=== PATIENT | female | born 1990 | race Two or more races ===

== ENCOUNTER 2019-05-08 00:41 | Emergency (ER) | payer BC ==
[2019-05-08 00:52] VITALS: TEMP 97.6; BMI 21.1
--- NOTE | 2019-05-08 01:49 | PDOC ---
Attending Attestation - Resident Resident Name: Getachew Henley - ED Attending Attestation I have performed the following: I have examined & evaluated the patient, The case was reviewed & discussed with the resident, I agree w/resident's findings & plan - HPI HPI: 05/08/19 05:48 Pt comes with flank pain and dysuria. She has no fever and no chills. - Physicial Exam PE: 05/08/19 05:49 Agree with resident exam 05/08/19 06:32 R flank pain. Right side pain and Right abd pain. Pt has no fever and no chills A+Ox3. Heart and lungs are clear. No rebound, no guarding. No peripeheral edema. - Medical Decision Making 05/08/19 05:49 Pt has a UTI; but no stones visible of CT scan; she has no fever and no chills. Patient Name: SANTHOSH HANNA THIS IS A PRELIMINARY REPORT FROM [facility] DATE OF SERVICE: 2019-05-08 05:05:57 IMAGES: [id number] EXAM: CT abdomen pelvis without contrast HISTORY: Flank pain COMPARISON: None. FINDINGS: Lung bases are clear. The visualized cardiac chambers are normal size and configuration. There is mild right hydroureter without obstructing stone identified. Patient may have recently passed a stone. Normal unenhanced liver, gallbladder, pancreas, spleen , adrenal glands and left kidney. The stomach and abdominal small and large bowel are normal. There is no aortic aneurysm. There is no significant retroperitoneal lymphadenopathy. The pelvic small and large bowel are normal. There is no evidence of appendicitis, though the headaches is not clearly visualized. The uterus and adnexal structures are normal. Urinary bladder is unremarkable. There is minimal pelvic free fluid. No discrete pelvic lymphadenopathy is identified. IMPRESSION: Mild right hydroureter could be due to a recently passed stone. 05/08/19 05:57 Pt will be sent home with abx; she will be given an IV dose of meds in the ER. 05/08/19 06:30 Pt is still feeling some right flank pain; however her abd pain and suprapubic pain is improved. She feels warm to the touch and her HR is 90bpm. She received a dose of ceftriaxone in the ER IVPB, and she will go home with keflex 500BID.
--- NOTE | 2019-05-08 01:56 | PDOC ---
History of Present Illness - General Chief Complaint: Pain, Acute Stated Complaint: ABD PAIN Time Seen by Provider: 05/08/19 01:36 - History of Present Illness Initial Comments: 05/08/19 01:50 29 y/o F no significant medical hx, presents to the ED with right sided abdominal pain she has had since this a.m. Pain has been constant through out the day and was initially bearable. Approx 2 hours ago pain intensified and is radiating to her back , 10/10 in severity. She denies any relieving/ exacerbating factors and has not taken any medications at home. She has had 4 episodes of loose stools since yesterday with no melena. One episode of hematuria. Frequency, urgency and nausea. She has had 2 other visits for abdominal pain in the last 2 weeks after a trip to [place] in where she had a ' stomach virus" and had vomiting, diarrhea and abdominal pain as well. She denies any vaginal bleeding or discharge, LMP was 04/20 Past History - Past Medical History Allergies/Adverse Reactions: Allergies Allergy/AdvReac Type Severity Reaction Status Date / Time No Known Allergies Allergy Verified 05/08/19 02:20 Home Medications: Ambulatory Orders Cephalexin [Keflex] 500 mg PO BID 7 Days #14 capsule 05/08/19 - Suicide/Smoking/Psychosocial Hx Smoking History: Never smoked Have you smoked in the past 12 months: No Information on smoking cessation initiated: No Hx Alcohol Use: No Drug/Substance Use Hx: No *Physical Exam - Vital Signs Last Vital Signs Temp Pulse Resp BP Pulse Ox 97.6 F 89 20 101/81 100 05/08/19 00:50 05/08/19 00:50 05/08/19 00:50 05/08/19 00:50 05/08/19 00:50 - Physical Exam Comments: 05/08/19 02:36 GENERAL: Awake, alert, and fully oriented, in no acute distress HEAD: No signs of trauma, normocephalic, atraumatic EYES: PERRLA, EOMI, sclera anicteric, conjunctiva clear ENT: Auricles normal inspection, hearing grossly normal, nares patent, oropharynx clear without exudates. Moist mucosa NECK: Normal ROM, supple, no lymphadenopathy, JVD, or masses LUNGS: No distress, speaks full sentences, clear to auscultation bilaterally HEART: Regular rate and rhythm, normal S1 and S2, no murmurs, rubs or gallops, peripheral pulses normal and equal bilaterally. ABDOMEN: Soft, epigastric tenderness and guarding. right CVA tenderness. no rebound EXTREMITIES : Normal inspection, Normal range of motion, no edema. No clubbing or cyanosis NEUROLOGICAL: Cranial nerves II through XII grossly intact. Normal speech, normal gait, no focal sensorimotor deficits SKIN: Warm, Dry, normal turgor, no rashes or lesions noted ED Treatment Course - LABORATORY CBC & Chemistry Diagram: 05/08/19 03:20 05/08/19 03:20 Medical Decision Making - Medical Decision Making 05/08/19 04:03 29 y/o F no significant medical hx, presents to the ED with right sided abdominal pain she has had since this a.m. cbc, cmp, ua, serum preg, ct (spiral) Meds: Normal saline 1000ml, IV tylenol 1g UA: + leukocyte esterase, nitrites,blood cbc: elevated white count. 05/08/19 05:42 ct abdomen and pelvis w/o contrast. FINDINGS: Lung bases are clear. The visualized cardiac chambers are normal size and configuration. There is mild right hydroureter without obstructing stone identified. Patient may have recently passed a stone. Normal unenhanced liver, gallbladder, pancreas, spleen , adrenal glands and left kidney. The stomach and abdominal small and large bowel are normal. There is no aortic aneurysm. There is no significant retroperitoneal lymphadenopathy. The pelvic small and large bowel are normal. There is no evidence of appendicitis, though the headaches is not clearly visualized. The uterus and adnexal structures are normal. Urinary bladder is unremarkable. There is minimal pelvic free fluid. No discrete pelvic lymphadenopathy is identified. IMPRESSION: Mild right hydroureter could be due to a recently passed stone. 05/08/19 06:07 Pt given 1 dose of rocephin (1gm in ED) IV Discharge home with prescription for Keflex 500mg PO bid for 7 days. *DC/Admit/Observation/Transfer Diagnosis at time of Disposition: UTI (urinary tract infection) Qualifiers: Urinary tract infection type: site unspecified - Discharge Dispostion Disposition: HOME Condition at time of disposition: Stable Decision to Admit order: No - Prescriptions Prescriptions: Cephalexin [Keflex] 500 mg PO BID 7 Days #14 capsule - Referrals - Patient Instructions Printed Discharge Instructions: Urinary Tract Infection Additional Instructions: UTI Discharge: HOME CARE INSTRUCTIONS - you were prescribed antibiotics, take them as instructed. Finish the medication even if you feel better! Drink enough water and fluids to keep your urine clear or pale yellow. Avoid caffeine, tea, and carbonated beverages - these can irritate your bladder. Empty your bladder often. Avoid holding urine for long periods of time. Empty your bladder before and after sexual intercourse. After a bowel movement, women should cleanse from front to back. Use each tissue only once. SEEK MEDICAL CARE IF: You have back pain. You develop a fever. Your symptoms do not begin to resolve within 3 days. SEEK IMMEDIATE MEDICAL CARE IF: You have severe back pain or lower abdominal pain. You develop chills. You have nausea or vomiting. You have continued burning or discomfort with urination. - Post Discharge Activity
[2019-05-08] MEDS ORDERED: ACETAMINOPHEN 1000 MG/100 ML VIAL (NON FORMULARY) IVPB ONE (02:14)
[2019-05-08] MEDS ORDERED: SODIUM CHLORIDE 0.9% 500 ML INFUS.BAG IV ONE (02:14)
[2019-05-08] MEDS ORDERED: ACETAMINOPHEN INJECTION 100 ML IVPB ONE (02:50)
[2019-05-08 02:51] LABS: EPI CELLS 3.5 /HPF (0-5/HPF); HYALINE CASTS 6 /lpf (0-8); URINE APPEARANCE TURBID; URINE BACTERIA 4579.6 /hpf (NEGATIVE); URINE BILIRUBIN NEGATIVE (NEGATIVE); URINE COLOR YELLOW; URINE GLUCOSE (UA) NEGATIVE (NEGATIVE); URINE KETONE NEGATIVE (NEGATIVE); URINE LEUK ESTERASE 3+ (NEGATIVE); URINE NITRITE POSITIVE (NEGATIVE); URINE PROTEIN 2+ (NEGATIVE); URINE RBC 6 /hpf (0-4); URINE UROBILINOGEN 0.2 mg/dL (0.2-1.0); URINE WBC 640 /hpf (0-5)
[2019-05-08 03:56] LABS: BASO % 0.2 % (0-2.0); EOS % 0.9 % (0-4.5); HEMATOCRIT 37.9 % (32.4-45.2); HEMOGLOBIN 12.5 GM/dL (10.7-15.3); LYMPH % 11.7 % (8-40); MCH 28.4 pg (25.7-33.7); MCHC 32.9 g/dl (32.0-36.0); MEAN CELL VOLUME 86.4 fl (80-96); MEAN PLT VOLUME 8.7 fl (7.5-11.1); MONO % 5.7 % (3.8-10.2); NEUT % 81.5 % (42.8-82.8); PLATELET COUNT 248 K/MM3 (134-434); RBC 4.39 M/mm3 (3.60-5.2); RDW 13.1 % (11.6-15.6); WHITE BLOOD COUNT 13.6 K/mm3 (4.0-10.0)
[2019-05-08 04:19] LABS: ALBUMIN 3.6 g/dl (3.4-5.0); BILIRUBIN,TOTAL 0.4 mg/dL (0.2-1); BLOOD UREA NITROGEN 16.5 mg/dL (7-18); CREATININE 0.6 mg/dL (0.55-1.3); POTASSIUM 3.9 mmol/L (3.5-5.1); TOT PROT 6.6 g/dl (6.4-8.2)
[2019-05-08] MEDS ORDERED: CEFTRIAXONE 1 GM in DEXTROSE 5%-WATER - 100 ML IVPB ONE (05:47)
[2019-05-08] MEDS ORDERED: CEFTRIAXONE 1 GM/50 ML BAG ONE (05:56)
[2019-05-08 06:42] VITALS: BP 110/85; PULSE 84
== END 2019-05-08 06:26 | disposition home or self-care (01) ==
LOC: JER 00:41
DX: N39.0 Urinary tract infection, site not specified (principal)
CPT/HCPCS: 36415; 74176-TC; 80053; 81003; 83690; 84703; 85025; 87086; 87186; 96365; 99283-25; J0131

== ENCOUNTER 2023-08-25 04:41 | Day surgery (SDC) | payer OTHER ==
[2023-08-13 15:31] VITALS: BMI 24.5
[2023-08-25] MEDS ORDERED: PROMETHAZINE HCL 25 MG/1 ML VIAL IVPB PRN (07:46)
[2023-08-25] MEDS ORDERED: ONDANSETRON 4 MG/2 ML VIAL IVPUSH PRN (07:46)
[2023-08-25] MEDS ORDERED: oxyCODONE HCL 5 MG TABLET PO PRN (07:46)
[2023-08-25] MEDS ORDERED: LACTATED RINGERS SOLUTION 1,000 ML IV SCH (08:00)
[2023-08-25 08:19] LABS: PH,URINE 5.5 (5.0-8.0); URINE APPEARANCE CLEAR; URINE BILIRUBIN NEGATIVE (NEGATIVE); URINE COLOR YELLOW; URINE GLUCOSE (UA) NEGATIVE (NEGATIVE); URINE KETONE NEGATIVE (NEGATIVE); URINE LEUK ESTERASE NEGATIVE (NEGATIVE); URINE NITRITE NEGATIVE (NEGATIVE); URINE PROTEIN NEGATIVE (NEGATIVE); URINE UROBILINOGEN 0.2 mg/dL (0.2-1.0)
== END 2023-08-25 09:00 | disposition home or self-care (01) ==
LOC: JASU-SURG 04:41
PROVIDERS: ATTEND Obstetrics & Gynecology
DX: Z53.8 Procedure and treatment not carried out for other reasons (principal)
CPT/HCPCS: 81003; 81025

== ENCOUNTER 2023-09-09 04:07 | Day surgery (SDC) | payer OTHER ==
[2023-09-08 11:41] VITALS: BMI 24.5
[2023-09-09] MEDS ORDERED: PROPOFOL 20 ML ONE (07:37)
[2023-09-09] MEDS ORDERED: ROCURONIUM BROMIDE 50 MG/5 ML SYRINGE ONE (07:37)
[2023-09-09] MEDS ORDERED: MIDAZOLAM HCL 2 MG/2 ML SINGLE DOSE VIAL ONE (07:37)
[2023-09-09] MEDS ORDERED: LIDOCAINE HCL/PF 2% SDV 5ML VIAL ONE (07:44)
[2023-09-09] MEDS ORDERED: METHYLENE BLUE 50 MG/10 ML AMPUL ONE (07:48)
[2023-09-09] MEDS ORDERED: ceFAZolin SODIUM 1 GM VIAL IVPB ONE (08:15)
[2023-09-09] MEDS ORDERED: SODIUM CHLORIDE 0.9% P/F 10 ML VIAL IJ ONE (08:17)
[2023-09-09] MEDS ORDERED: ceFAZolin SODIUM 1 GM VIAL ONE (08:17)
[2023-09-09] MEDS ORDERED: METOCLOPRAMIDE HCL INJECTION 10 MG/2 ML VIAL ONE (08:26)
[2023-09-09] MEDS ORDERED: ONDANSETRON 4 MG/2 ML VIAL ONE (08:26)
[2023-09-09] MEDS ORDERED: DEXAMETHASONE SOD PHOSPHATE 4 MG/1 ML VIAL ONE (08:26)
[2023-09-09] MEDS ORDERED: METHYLENE BLUE 1% 10 MG/1 ML VIAL NR ONE (08:35)
[2023-09-09] MEDS ORDERED: LIDOCAINE HCL 1%, 10 MG/ML (20ML VIAL) ONE (08:49)
[2023-09-09] MEDS ORDERED: SUGAMMADEX SODIUM 200 MG/2 ML VIAL ONE (08:54)
[2023-09-09] MEDS ORDERED: LIDOCAINE HCL 1%, 10 MG/ML (20ML VIAL) SQ ONE (08:55)
[2023-09-09] MEDS ORDERED: ONDANSETRON 4 MG/2 ML VIAL IVPUSH PRN ×2 (08:59→09:17)
[2023-09-09] MEDS ORDERED: oxyCODONE HCL 5 MG TABLET PO PRN ×2 (08:59→09:17)
[2023-09-09] MEDS ORDERED: IBUPROFEN 600 MG TABLET (FP) PO PRN (08:59)
[2023-09-09] MEDS ORDERED: IBUPROFEN 800 MG/8 ML IJ IVPB PRN (08:59)
[2023-09-09] MEDS ORDERED: ELECTROLYTE-148 SOLN 1,000 ML IV SCH (09:00)
[2023-09-09] MEDS ORDERED: PROMETHAZINE HCL 25 MG/1 ML VIAL IVPB PRN (09:17)
[2023-09-09] MEDS ORDERED: LACTATED RINGERS SOLUTION 1,000 ML IV SCH (09:30)
[2023-09-09 12:25] VITALS: TEMP 97.2
[2023-09-09 13:02] VITALS: BP 125/75; PULSE 85; RESP 20
== END 2023-09-09 12:59 | disposition home or self-care (01) ==
LOC: JASU-SURG 04:07
PROVIDERS: ATTEND Obstetrics & Gynecology
PROC: 3E0P8KZ Introduction of Other Diagnostic Substance into Female Reproductive, Via Natural or Artificial Opening Endoscopic (ICD-10-PCS; 2023-09-09)
PROC: 0UJ84ZZ Inspection of Fallopian Tube, Percutaneous Endoscopic Approach (ICD-10-PCS; 2023-09-09)
PROC: 0DBW4ZX Excision of Peritoneum, Percutaneous Endoscopic Approach, Diagnostic (ICD-10-PCS; principal; 2023-09-09 08:00)
DX: N97.9 Female infertility, unspecified (principal); D25.9 Leiomyoma of uterus, unspecified; N80.329 Endometriosis of the posterior cul-de-sac, unspecified depth; N80.399 Endometriosis of the pelvic peritoneum, other specified sites, unspecified depth
CPT/HCPCS: 88305-TC; 94760; Q9968

== ENCOUNTER 2024-10-13 12:00 | Inpatient (IN) | payer OTHER ==
[2024-10-13 14:13] LABS: RETICULOCYTES 1.64 % (0.5-1.5)
[2024-10-13 14:51] LABS: URIC ACID 5.1 mg/dL (2.6-7.2)
[2024-10-13 15:21] LABS: RETICULOCYTES 1.69 % (0.5-1.5)
[2024-10-13] MEDS ORDERED: ACETAMINOPHEN 325 MG TABLET (FP) PO ONE (17:00)
[2024-10-13] MEDS ORDERED: ACETAMINOPHEN 325 MG TABLET (FP) ONE ×2 (17:01→22:47)
[2024-10-13] MEDS: ACETAMINOPHEN 325 MG TABLET (FP) PO ONE (17:03)
[2024-10-13 18:43] VITALS: BMI 34.0
[2024-10-13] MEDS ORDERED: ONDANSETRON 4 MG/2 ML VIAL ONE (22:32)
[2024-10-13] MEDS: ONDANSETRON 4 MG/2 ML VIAL IVPUSH ONE (22:37)
[2024-10-13] MEDS: ACETAMINOPHEN 325 MG TABLET (FP) PO PRN (22:51)
[2024-10-14 07:45] LABS: BASO % 0.4 % (0-2.0); HEMATOCRIT 35.1 % (32.4-45.2); HEMOGLOBIN 11.5 GM/dL (10.7-15.3); MCH 28.3 pg (25.7-33.7); MCHC 32.6 g/dl (32.0-36.0); MEAN CELL VOLUME 86.8 fl (80-96); MEAN PLT VOLUME 8.3 fl (7.5-11.1); MONO % 6.5 % (3.8-10.2); NEUT % 68.1 % (42.8-82.8); PLATELET COUNT 270 10^3/uL (134-434); RBC 4.04 M/mm3 (3.60-5.2); RDW 14.3 % (11.6-15.6); WHITE BLOOD COUNT 9.9 K/mm3 (4.0-10.0)
[2024-10-14] MEDS ORDERED: ACETAMINOPHEN 325 MG TABLET (FP) ONE ×2 (08:12→22:06)
[2024-10-14 08:19] LABS: POTASSIUM 4.9 mmol/L (3.5-5.1)
[2024-10-14 08:21] LABS: ALBUMIN 2.3 g/dl (3.4-5.0); BLOOD UREA NITROGEN 9.9 mg/dL (7-18); CALCIUM 9.2 mg/dL (8.5-10.1)
[2024-10-14 08:24] LABS: CREATININE 0.5 mg/dL (0.55-1.3)
[2024-10-14 08:26] LABS: BILIRUBIN,TOTAL 0.2 mg/dL (0.2-1); TOT PROT 5.9 g/dl (6.4-8.2)
[2024-10-14] MEDS ORDERED: ACETAMINOPHEN INJECTION 100 ML ONE (14:14)
[2024-10-14] MEDS: LACTATED RINGERS SOLUTION 1,000 ML IV SCH (14:15)
[2024-10-14] MEDS: ACETAMINOPHEN 1000 MG/100 ML BAG IVPB ONE (14:20)
[2024-10-14 20:25] LABS: BASO % 0.3 % (0-2.0); EOS % 2.3 % (0-4.5); HEMOGLOBIN 11.6 GM/dL (10.7-15.3); LYMPH % 24.1 % (8-40); MCH 28.3 pg (25.7-33.7); MCHC 33.1 g/dl (32.0-36.0); MEAN CELL VOLUME 85.3 fl (80-96); MEAN PLT VOLUME 8.1 fl (7.5-11.1); MONO % 7.1 % (3.8-10.2); NEUT % 66.2 % (42.8-82.8); PLATELET COUNT 272 10^3/uL (134-434); RDW 13.9 % (11.6-15.6)
[2024-10-14 20:32] LABS: INR 0.96 (0.83-1.09); PROTHROMBIN TIME (PATIENT) 10.6 SEC (9.7-13.0)
[2024-10-14 20:46] LABS: POTASSIUM 4.9 mmol/L (3.5-5.1)
[2024-10-14 20:48] LABS: CALCIUM 9.4 mg/dL (8.5-10.1)
[2024-10-14 20:49] LABS: ALBUMIN 2.3 g/dl (3.4-5.0); BLOOD UREA NITROGEN 10.6 mg/dL (7-18)
[2024-10-14 20:52] LABS: CREATININE 0.4 mg/dL (0.55-1.3); URIC ACID 4.6 mg/dL (2.6-7.2)
[2024-10-14 20:53] LABS: BILIRUBIN,TOTAL 0.2 mg/dL (0.2-1)
[2024-10-15 13:01] LABS: BASO % 0.2 % (0-2.0); EOS % 2.1 % (0-4.5); HEMATOCRIT 35.1 % (32.4-45.2); HEMOGLOBIN 11.7 GM/dL (10.7-15.3); MCH 28.4 pg (25.7-33.7); MCHC 33.3 g/dl (32.0-36.0); MEAN CELL VOLUME 85.2 fl (80-96); MEAN PLT VOLUME 8.1 fl (7.5-11.1); MONO % 6.6 % (3.8-10.2); NEUT % 72.1 % (42.8-82.8); PLATELET COUNT 267 10^3/uL (134-434); RBC 4.11 M/mm3 (3.60-5.2); RDW 14.3 % (11.6-15.6); WHITE BLOOD COUNT 9.3 K/mm3 (4.0-10.0)
[2024-10-15 13:24] LABS: POTASSIUM 4.9 mmol/L (3.5-5.1)
[2024-10-15 13:26] LABS: ALBUMIN 2.4 g/dl (3.4-5.0); BLOOD UREA NITROGEN 6.8 mg/dL (7-18)
[2024-10-15 13:30] LABS: BILIRUBIN,TOTAL 0.2 mg/dL (0.2-1); CREATININE 0.4 mg/dL (0.55-1.3)
[2024-10-15] MEDS ORDERED: METOCLOPRAMIDE HCL INJECTION 10 MG/2 ML VIAL ONE (15:45)
[2024-10-15] MEDS: METOCLOPRAMIDE HCL INJECTION 10 MG/2 ML VIAL IVPB ONE (15:50)
[2024-10-15] MEDS ORDERED: ACETAMINOPHEN 1000 MG/100 ML BAG IVPB PRN (16:16)
[2024-10-15 22:18] VITALS: RESP 18
[2024-10-16 08:18] LABS: BASO % 0.3 % (0-2.0); HEMATOCRIT 32.9 % (32.4-45.2); HEMOGLOBIN 11.2 GM/dL (10.7-15.3); LYMPH % 20.4 % (8-40); MCH 29.2 pg (25.7-33.7); MCHC 34.2 g/dl (32.0-36.0); MEAN CELL VOLUME 85.4 fl (80-96); MEAN PLT VOLUME 8.4 fl (7.5-11.1); MONO % 6.9 % (3.8-10.2); NEUT % 69.4 % (42.8-82.8); PLATELET COUNT 242 10^3/uL (134-434); RBC 3.85 M/mm3 (3.60-5.2); RDW 14.4 % (11.6-15.6); WHITE BLOOD COUNT 11.1 K/mm3 (4.0-10.0)
[2024-10-16 08:22] LABS: POTASSIUM 4.6 mmol/L (3.5-5.1)
[2024-10-16 08:24] LABS: ALBUMIN 2.2 g/dl (3.4-5.0); BLOOD UREA NITROGEN 9.8 mg/dL (7-18); CALCIUM 8.6 mg/dL (8.5-10.1)
[2024-10-16 08:26] LABS: URIC ACID 5.1 mg/dL (2.6-7.2)
[2024-10-16 08:27] LABS: CREATININE 0.4 mg/dL (0.55-1.3)
[2024-10-16 08:28] LABS: BILIRUBIN,TOTAL 0.2 mg/dL (0.2-1); TOT PROT 5.5 g/dl (6.4-8.2)
[2024-10-16 09:39] VITALS: TEMP 98.2
[2024-10-16 14:30] VITALS: BP 132/82; PULSE 98
== END 2024-10-16 14:40 | disposition home or self-care (01) | DRG 566 ==
LOC: JDEL 12:00 → JLDR 17:55 → J3W 10-15 16:00
PROVIDERS: ADMIT Obstetrics & Gynecology; ATTEND Obstetrics & Gynecology
DX: O26.893 Other specified pregnancy related conditions, third trimester (principal); G43.909 Migraine, unspecified, not intractable, without status migrainosus; O09.513 Supervision of elderly primigravida, third trimester; Z3A.35 35 weeks gestation of pregnancy
CPT/HCPCS: 36415; 70544-TC; 70551-TC; 80053; 82570; 82977; 83010; 84156; 84450; 84460; 84550; 85025; 85032; 85045; 85610; 85730; 86850; 86870; 86880; 86900; 86901; 86902; J0131

== ENCOUNTER 2024-11-02 10:46 | Inpatient (IN) | payer OTHER ==
[2024-11-02 13:17] LABS: ABSOLUTE IMMATURE GRANULOCYTES 0.16 x10^3/uL (0.0-0.031); BASOPHILS # 0.06 x10^3/uL (0.01-0.08); EOSINOPHIL % 1.3 % (0.7-5.8); EOSINOPHILS # 0.17 x10^3/uL (0.04-0.36); HEMATOCRIT 36.9 % (34.1-44.9); MCHC 32.5 g/dl (32.2-35.5); MEAN CELL VOLUME 86.6 fl (79.4-94.8); MEAN PLT VOLUME 10.1 fl (9.4-12.3); MONOCYTE # 0.69 x10^3/uL (0.24-0.86); MONOCYTE % 5.2 % (4.7-12.5); PLATELET COUNT # 257 x10^3/uL (182-369); RDW 15.1 % (12.1-16.8); Reticulocyte % 2.65 % (0.5-1.7)
[2024-11-02 13:46] LABS: URIC ACID 4.6 mg/dL (2.6-7.2)
[2024-11-02] MEDS: LACTATED RINGERS SOLUTION 1,000 ML/1,000 ML INFUS.BAG IV SCH (15:45)
[2024-11-02] MEDS: DINOPROSTONE 10 MG VAGINAL SUPPOSITORY VG ONE (15:50)
[2024-11-02 16:55] LABS: INR 0.96 (0.83-1.09); PROTHROMBIN TIME (PATIENT) 10.5 SEC (9.7-13.0)
[2024-11-02 17:04] LABS: POTASSIUM 4.2 mmol/L (3.5-5.1)
[2024-11-02 17:05] VITALS: BMI 35.5
[2024-11-02 17:05] LABS: CALCIUM 9.1 mg/dL (8.5-10.1)
[2024-11-02 17:06] LABS: BLOOD UREA NITROGEN 11.4 mg/dL (7-18)
[2024-11-02 17:09] LABS: CREATININE 0.4 mg/dL (0.55-1.3)
[2024-11-02 18:01] LABS: HCV DIAGNOSTIC IN-HOUSE W/RFLX NON-REACTIVE (NONREACTIVE); HIV INTERPRETATION NEGATIVE (NEGATIVE)
[2024-11-03] MEDS ORDERED: OXYTOCIN 30 UNITS in 0.9% NS 30 UNIT/500 ML INFUS.BAG IVPB ONE (09:08)
[2024-11-03] MEDS: OXYTOCIN 30 UNITS in 0.9% NS 30 UNIT/500 ML INFUS.BAG IVPB SCH (09:15)
[2024-11-04] MEDS: CITRIC ACID/SODIUM CITRATE 30 ML UNIT-DOSE CUP PO ONE (09:30)
[2024-11-04] MEDS ORDERED: PHENYLEPHRINE HCL 10 MG/1 ML SINGLE DOSE VIAL ONE (09:59)
[2024-11-04] MEDS ORDERED: OXYTOCIN 10 UNITS/ML VIAL ONE (09:59)
[2024-11-04] MEDS ORDERED: ONDANSETRON 4 MG/2 ML VIAL ONE (09:59)
[2024-11-04] MEDS ORDERED: KETOROLAC TROMETHAMINE 30 MG/1 ML VIAL ONE (09:59)
[2024-11-04] MEDS ORDERED: SODIUM CHLORIDE 0.9% P/F 10 ML VIAL IJ ONE (10:00)
[2024-11-04] MEDS ORDERED: morphine SULFATE/PF 1 MG/2 ML (2cc Syringe - QUVA) ONE (10:00)
[2024-11-04] MEDS ORDERED: FENTANYL CITRATE/PF 50 MCG/ML VIAL ONE (10:00)
[2024-11-04] MEDS ORDERED: ceFAZolin SODIUM 1 GM VIAL ONE (10:01)
[2024-11-04] MEDS ORDERED: ONDANSETRON 4 MG/2 ML VIAL IVPUSH PRN (11:02)
[2024-11-04] MEDS ORDERED: METHYLERGONOVINE MALEATE 0.2 MG/1 ML AMP IM PRN (11:28)
[2024-11-04 11:39] LABS: CORD BASE EXCESS -1.8 mmol/L (0-2); CORD HCO3 23.9 mmHg (20-29); CORD PCO2 43.8 mmHg (30-78); CORD pH 7.354 (7.14-7.44)
[2024-11-04 11:41] LABS: CORD PCO2 49.6 mmHg (30-78); CORD pH 7.303 (7.14-7.44)
[2024-11-04] MEDS: OXYTOCIN 20 UNITS in 0.9% NS 20 UNIT/1,000 ML INFUS.BAG IV SCH (14:00)
[2024-11-04] MEDS ORDERED: OXYTOCIN 20 UNITS in 0.9% NS 20 UNIT/1,000 ML INFUS.BAG IV ONE (14:06)
[2024-11-04] MEDS: IBUPROFEN 800 MG/8 ML IJ IVPB PRN (16:48)
[2024-11-04] MEDS: LABETALOL HCL 200 MG TABLET (FP) PO PRN (17:41)
[2024-11-04] MEDS ORDERED: CEFAZOLIN 2 GM/D5W 2 GM/50 ML ML IVPB SCH (18:00)
[2024-11-04] MEDS: CEFAZOLIN SODIUM 2 GM in DEXTROSE 5%-WATER 100 ML IVPB SCH (18:12)
[2024-11-04] MEDS: IBUPROFEN 600 MG TABLET (FP) PO PRN (21:18)
[2024-11-04] MEDS ORDERED: oxyCODONE HCL 5 MG TABLET PO PRN ×2 (23:29)
[2024-11-05 07:28] LABS: ABSOLUTE IMMATURE GRANULOCYTES 0.07 x10^3/uL (0.0-0.031); BASOPHILS # 0.03 x10^3/uL (0.01-0.08); EOSINOPHIL % 1.5 % (0.7-5.8); EOSINOPHILS # 0.16 x10^3/uL (0.04-0.36); HEMATOCRIT 28.6 % (34.1-44.9); HEMOGLOBIN 9.3 g/dL (11.2-15.7); MCHC 32.5 g/dl (32.2-35.5); MEAN CELL VOLUME 87.5 fl (79.4-94.8); MEAN PLT VOLUME 10.2 fl (9.4-12.3); MONOCYTE # 0.95 x10^3/uL (0.24-0.86); MONOCYTE % 8.8 % (4.7-12.5); PLATELET COUNT # 206 x10^3/uL (182-369); RDW 14.9 % (12.1-16.8)
[2024-11-05] MEDS: SIMETHICONE 80 MG TAB.CHEW (FP) PO PRN (08:10)
[2024-11-05] MEDS: ENOXAPARIN NA (PORCINE) 40 MG/0.4 ML DISP.SYRIN SQ SCH (10:10)
[2024-11-05] MEDS ORDERED: BISACODYL 10 MG SUPP.RECT RC PRN (11:29)
[2024-11-06 10:59] LABS: ABSOLUTE IMMATURE GRANULOCYTES 0.14 x10^3/uL (0.0-0.031); BASOPHILS # 0.04 x10^3/uL (0.01-0.08); EOSINOPHIL % 1.8 % (0.7-5.8); EOSINOPHILS # 0.24 x10^3/uL (0.04-0.36); HEMOGLOBIN 9.6 g/dL (11.2-15.7); MEAN CELL VOLUME 88.8 fl (79.4-94.8); MONOCYTE # 0.79 x10^3/uL (0.24-0.86); PLATELET COUNT # 222 x10^3/uL (182-369); RDW 15.3 % (12.1-16.8)
[2024-11-06] MEDS: ACETAMINOPHEN 325 MG TABLET (FP) PO PRN (11:01)
[2024-11-06 11:26] LABS: POTASSIUM 4.5 mmol/L (3.5-5.1)
[2024-11-06 11:27] LABS: CALCIUM 8.7 mg/dL (8.5-10.1)
[2024-11-06 11:29] LABS: ALBUMIN 2.1 g/dl (3.4-5.0); BLOOD UREA NITROGEN 6.4 mg/dL (7-18)
[2024-11-06 11:32] LABS: CREATININE 0.5 mg/dL (0.55-1.3)
[2024-11-06 11:33] LABS: BILIRUBIN,TOTAL 0.5 mg/dL (0.2-1); TOT PROT 5.5 g/dl (6.4-8.2)
[2024-11-06] MEDS: LABETALOL HCL 200 MG TABLET (FP) PO SCH (14:32)
[2024-11-07 07:04] LABS: ABSOLUTE IMMATURE GRANULOCYTES 0.16 x10^3/uL (0.0-0.031); BASOPHILS # 0.04 x10^3/uL (0.01-0.08); EOSINOPHIL % 4.9 % (0.7-5.8); EOSINOPHILS # 0.49 x10^3/uL (0.04-0.36); HEMOGLOBIN 9.6 g/dL (11.2-15.7); MEAN CELL VOLUME 89.3 fl (79.4-94.8); MEAN PLT VOLUME 10.2 fl (9.4-12.3); MONOCYTE # 0.57 x10^3/uL (0.24-0.86); MONOCYTE % 5.7 % (4.7-12.5); PLATELET COUNT # 235 x10^3/uL (182-369); RDW 15.1 % (12.1-16.8)
[2024-11-07] MEDS: LABETALOL HCL 200 MG TABLET (FP) PO ONE (07:05)
[2024-11-07] MEDS: LABETALOL HCL 200 MG TABLET (FP) PO SCH (14:45)
[2024-11-08] MEDS: NIFEdipine E.R 60 MG TABLET PO SCH (20:10)
[2024-11-09] MEDS ORDERED: NIFEdipine E.R 60 MG TABLET PO SCH (10:00)
[2024-11-09] MEDS: ACETAMINOPHEN/CAFFEINE/BUTALBITAL 1 TAB PO PRN (12:36)
[2024-11-09 16:01] VITALS: BP 132/83; PULSE 103; RESP 18; TEMP 97.9
== END 2024-11-09 19:15 | disposition home or self-care (01) | DRG 540 ==
LOC: JDEL 10:46 → JLDR 14:22 → J3W 11-04 14:20
PROVIDERS: ADMIT Obstetrics & Gynecology; ATTEND Obstetrics & Gynecology
PROC: 10D00Z1 Extraction of Products of Conception, Low, Open Approach (ICD-10-PCS; principal; 2024-11-04)
DX: O14.94 Unspecified pre-eclampsia, complicating childbirth (principal); O61.8 Other failed induction of labor; O90.89 Other complications of the puerperium, not elsewhere classified; R51.9 Headache, unspecified; Z3A.38 38 weeks gestation of pregnancy; Z37.0 Single live birth
CPT/HCPCS: 36415; 36600; 59025; 70450-TC; 80048; 80053; 82570; 82803; 82977; 83010; 84156; 84450; 84460; 84550; 85025; 85032; 85461; 85610; 86780; 86803; 86850; 86870; 86880; 86900; 86901; 86902; 87389; 88307-TC; 94010; 96372; J2790